=== PATIENT | female | born 1955 | race African-American/Black ===

== ENCOUNTER 2021-02-19 15:57 | Emergency (ER) | payer MEDICARE, OTHER ==
[~2021-02-19] VITALS: Ht 157.5 cm; Wt 60.0 kg
[~2021-02-19 15:57] MED LIST: COR12; GABA-290 PO; ONDA8TAB6 PO; SPIR25TA6; TRAMADOL
[2021-02-19 16:20] VITALS: BP 109/90
[2021-02-19 17:39] LABS: BASOPHILS % 0.7 % (0.0-2.0); EOSINOPHILS % 1.4 % (0.0-5.0); HEMATOCRIT. 34.8 % (36.0-48.0); HEMOGLOBIN. 11.6 g/dL (12.0-16.0); LYMPHOCYTES % 45.5 % (20.0-50.0); MEAN CORPUSCULAR HEMOGLOBIN 25.1 pg (28.0-32.0); MEAN CORPUSCULAR VOLUME 75.3 fL (81.0-99.0); MONOCYTES % 5.6 % (2.0-8.0); NEUTROPHILS % 46.8 % (40.0-76.0); PLATELET 232 x1000/uL (130-400); RED BLOOD CELL COUNT 4.62 mill/uL (4.2-5.4)
[2021-02-19 17:49] LABS: CHLORIDE 108 mEq/L (98-107)
[2021-02-19] MEDS ORDERED: FURO-151 MT (21:23)
== END 2021-02-19 21:27 | disposition home or self-care (01) ==
LOC: ER 15:57
DX: I11.0 Hypertensive heart disease with heart failure (principal); I50.9 Heart failure, unspecified; M79.89 Other specified soft tissue disorders; E78.00 Pure hypercholesterolemia, unspecified; Z98.890 Other specified postprocedural states
CPT/HCPCS: 36415; 71045; 80048; 80076; 83880; 85025; 93005; 93971; 99285

== ENCOUNTER 2021-06-13 15:37 | Inpatient (IN) | payer MEDICARE, MEDICAID ==
[~2021-06-13] VITALS: Ht 165.1 cm; Wt 57.6 kg
[~2021-06-13 15:37] MED LIST changes: +FURO-151 MT
[2021-06-13] MEDS ORDERED: MORPHINE SULFATE 4 MG/ML CPJ (NOT FOR IM USE) IV ONE (16:30)
[2021-06-13] MEDS ORDERED: ONDANSETRON HCL 4MG/2ML INJ IV ONE (16:30)
[2021-06-13 17:03] LABS: BASOPHILS % 0.4 % (0.0-2.0); HEMATOCRIT. 38.8 % (36.0-48.0); HEMOGLOBIN. 12.8 g/dL (12.0-16.0); LYMPHOCYTES % 28.1 % (20.0-50.0); MEAN CORPUSCULAR VOLUME 75.9 fL (81.0-99.0); MEAN PLATELET VOLUME 8.7 fl (7.4-10.4); MONOCYTES % 3.7 % (2.0-8.0); NEUTROPHILS % 66.8 % (40.0-76.0); PLATELET 286 x1000/uL (130-400); RED BLOOD CELL COUNT 5.12 mill/uL (4.2-5.4)
[2021-06-13 17:10] LABS: CHLORIDE 108 mEq/L (98-107)
[2021-06-13] MEDS: SACUBITRIL/VALSARTAN 24MG/26MG TABLET PO SCH (18:13)
[2021-06-13] MEDS ORDERED: CEFTRIAXONE 1 G PREMIX 50 ML IV ONE (18:15)
[2021-06-13] MEDS ORDERED: FENTANYL CITRATE/PF 50MCG/ML 2ML VIAL IV ONE (18:45)
[2021-06-13] MEDS ORDERED: KETOROLAC 15MG/ML VIAL IV ONE (19:30)
[2021-06-13] MEDS: MORPHINE SULFATE 4 MG/ML CPJ (NOT FOR IM USE) IV ONE ×2 (19:45→20:16)
[2021-06-13] MEDS: TAMSULOSIN HCL 0.4MG SR CAPSULE PO SCH (20:36)
[2021-06-13] MEDS: CARVEDILOL 3.125 MG TABLET PO SCH (21:32)
[2021-06-13 21:59] LABS: CLARITY URINE CLEAR (CLEAR); COLOR URINE YELLOW (YELLOW); KETONES URINE 1+ (NEGATIVE); LEUKOCYTE ESTERASE URINE NEGATIVE (NEGATIVE); NITRITE URINE NEGATIVE (NEGATIVE); OCCULT BLOOD URINE NEGATIVE (NEGATIVE); PH URINE 6.5 (4.5-8.0); PROTEIN URINE NEGATIVE (NEGATIVE); UROBILINOGEN URINE 0.2 E.U./dL (0.2-1.0)
[2021-06-13 22:15] LABS: *AMPHETAMINES SCREEN URINE NEGATIVE (NEGATIVE); *BARBITURATES SCREEN URINE NEGATIVE (NEGATIVE); *BENZODIAZEPINES SCREEN URINE NEGATIVE (NEGATIVE); *COCAINE SCREEN URINE NEGATIVE (NEGATIVE); CANNABINOID URINE SCREEN NEGATIVE (NEGATIVE); METHADONE URINE SCREEN NEGATIVE (NEGATIVE); OPIATES URINE SCREEN PRESUMTIVE POSITIVE (NEGATIVE); PHENCYCLIDINE URINE SCREEN NEGATIVE (NEGATIVE)
[2021-06-13 23:30] VITALS: BP 105/87
[2021-06-14] VITALS: BP 105/87
[2021-06-14] MEDS ORDERED: MAGNESIUM/ALUMINUM HYDROXIDE/SIMETHICONE 30ML UDC PO PRN (00:30)
[2021-06-14] MEDS ORDERED: HYDROCODONE/ACETAMINOPHEN 5/325MG TABLET PO PRN (00:30)
[2021-06-14] MEDS ORDERED: DOCUSATE SODIUM 100MG CAPSULE PO PRN (00:30)
[2021-06-14] MEDS ORDERED: IPRATROPIUM/ALBUTEROL 0.5-3(2.5)MG/3ML NEB HHN PRN (00:30)
[2021-06-14] MEDS ORDERED: KETOROLAC 15MG/ML VIAL IV PRN (00:30)
[2021-06-14] MEDS ORDERED: ACETAMINOPHEN 325MG TABLET PO PRN (00:30)
[2021-06-14] MEDS ORDERED: ONDANSETRON HCL 4MG/2ML INJ IV PRN (00:30)
[2021-06-14] MEDS ORDERED: CLONIDINE 0.1MG TABLET PO PRN (00:30)
[2021-06-14] MEDS ORDERED: SODIUM CHLORIDE 0.9% 1,000 ML IV SCH (01:00)
[2021-06-14 04:00] VITALS: BP 125/76
[2021-06-14] MEDS ORDERED: IOPAMIDOL 61% 300/15 ML VIAL IT ONE (07:04)
[2021-06-14 07:11] LABS: BASOPHILS % 0.3 % (0.0-2.0); EOSINOPHILS % 0.7 % (0.0-5.0); HEMATOCRIT. 40.6 % (36.0-48.0); LYMPHOCYTES % 26.6 % (20.0-50.0); MEAN CORPUSCULAR HEMOGLOBIN 24.4 pg (28.0-32.0); MEAN CORPUSCULAR VOLUME 75.9 fL (81.0-99.0); MONOCYTES % 3.3 % (2.0-8.0); NEUTROPHILS % 69.1 % (40.0-76.0); PLATELET 253 x1000/uL (130-400); RED BLOOD CELL COUNT 5.34 mill/uL (4.2-5.4); RED CELL DISTRIBUTION WIDTH 15.8 % (11.6-14.6)
[2021-06-14] MEDS ORDERED: OMEPRAZOLE 20MG CAPSULE EXTENDED RELEASE PO SCH (07:20)
[2021-06-14 08:00] VITALS: BP 111/81
[2021-06-14] MEDS ORDERED: PNEUMOCOCCAL 23-VAL P-SAC VAC 0.5 ML IM ONE (08:00)
[2021-06-14 08:07] LABS: CHLORIDE 107 mEq/L (98-107)
[2021-06-14 08:13] LABS: LDL CHOLESTEROL 132 mg/dL (5-100)
[2021-06-14 08:15] LABS: HDL CHOLESTEROL 51 mg/dL (40-59)
[2021-06-14] MEDS: TAMSULOSIN HCL 0.4MG SR CAPSULE PO SCH (08:46)
[2021-06-14] MEDS ORDERED: FUROSEMIDE 40MG TABLET PO SCH (09:00)
[2021-06-14] MEDS ORDERED: GABAPENTIN 300MG CAPSULE PO SCH (09:00)
[2021-06-14] MEDS: CARVEDILOL 3.125 MG TABLET PO SCH (09:00)
[2021-06-14] MEDS ORDERED: ENOXAPARIN 40MG/0.4ML SYR SUBCUT SCH (09:00)
[2021-06-14] MEDS: SACUBITRIL/VALSARTAN 24MG/26MG TABLET PO SCH (09:20)
[2021-06-14] MEDS ORDERED: TAMS-11 MT (10:50)
[2021-06-14 12:19] VITALS: BP 116/59
[2021-06-14 13:41] VITALS: BP 116/59
== END 2021-06-14 15:40 | disposition home or self-care (01) | DRG 694 ==
LOC: ER 15:37 → MICUSO 17:16 → 6WST 22:17
PROVIDERS: ADMIT Family Medicine Adult Medicine; ATTEND Family Medicine Adult Medicine
DX: N13.2 Hydronephrosis with renal and ureteral calculous obstruction (principal); I42.9 Cardiomyopathy, unspecified; I50.22 Chronic systolic (congestive) heart failure; M79.7 Fibromyalgia; Z20.822 Contact with and (suspected) exposure to COVID-19; E78.5 Hyperlipidemia, unspecified; I11.0 Hypertensive heart disease with heart failure; I27.20 Pulmonary hypertension, unspecified; Z87.442 Personal history of urinary calculi; Z79.84 Long term (current) use of oral hypoglycemic drugs; Z79.899 Other long term (current) drug therapy; Z90.49 Acquired absence of other specified parts of digestive tract; Z90.11 Acquired absence of right breast and nipple; Z85.3 Personal history of malignant neoplasm of breast; Z92.21 Personal history of antineoplastic chemotherapy
CPT/HCPCS: 36415; 71045; 74176; 76700; 80048; 80053; 80061; 80076; 80305; 81003; 82248; 83605; 83735; 84439; 84443; 84481; 84484; 85025; 87426; 93005; 93970; 99285; J0696; J1650; J1885; J2270; J2405; J3010; Q9967